=== PATIENT | male | born 1980 | race Caucasian/White ===

== ENCOUNTER → 2020-12-28 | Outpatient (CLI) | payer OTHER ==
[~2020-12-28] VITALS: Ht 170.2 cm; Wt 69.0 kg
[~2020-12-28] MED LIST: ADAL40KI SQ; ALBU8HFA IH; MERC50TA PO
[2020-12-28 11:39] VITALS: BP 106/65
== END | disposition home or self-care (01) ==
LOC: SRCNTR 11:16
PROVIDERS: ATTEND Internal Medicine
DX: K50.90 Crohn's disease, unspecified, without complications (principal); J18.9 Pneumonia, unspecified organism; R05 Cough